=== PATIENT | female | born 1965 | race Caucasian/White ===

== ENCOUNTER 2017-11-15 12:43 | Inpatient (IN) | payer OTHER ==
[2017-11-15] VITALS (8 sets, daily range): BP systolic 92–150; BP diastolic 45–67; PULSE 99–122; RESP 16–22; TEMP 99.8–102.1; O2SAT 88–100
[~2017-11-15] VITALS: Ht 152.4 cm; Wt 103.7 kg
[2017-11-15] MEDS ORDERED: SODIUM CHLORID 0.9% 500 ML INJ 500 ML IV ONE (13:45)
[2017-11-15] MEDS ORDERED: SODIUM CHLOR 0.9% 1000 ML INJ 1,000 ML IV SCH (13:45)
[2017-11-15 14:16] LABS: BILIRUBIN, URINE NEG (NEG); BLOOD, URINE LARGE (NEG); GLUCOSE,URINE NEG (NEG); KETONE, URINE NEG (NEG); MUCUS URINE FEW /lpf (OCC); NITRITE,URINE NEG (NEG); URINE COLOR LIGHT-RED (YELLW/STRAW); URINE LEUKOCYTE ESTERASE LARGE (NEG); WHITE BLOOD CELL CLUMPS MANY
[2017-11-15 14:18] LABS: AUTOMATED NEUTROPHIL # 7.2 TH/MM3 (1.8-7.7); BASOPHIL % 0.1 % (0.0-2.0); EOSINOPHIL % 0.2 % (0.0-4.0); HEMATOCRIT 34.3 % (35.0-46.0); HEMOGLOBIN 11.5 GM/DL (11.6-15.3); LYMPH % 2.3 % (9.0-44.0); LYMPHOCYTE # 0.2 TH/MM3 (1.0-4.8); MEAN CELL VOLUME 85.8 FL (80.0-100.0); MEAN CORPUSCULAR HEMOGLOBIN 28.7 PG (27.0-34.0); MEAN CORPUSCULAR HGB CONC 33.5 % (32.0-36.0); MEAN PLATELET VOLUME 8.1 FL (7.0-11.0); MONO % 0.3 % (0.0-8.0); NEUT % 97.1 % (16.0-70.0); PLATELET COUNT 301 TH/MM3 (150-450); RED CELL DISTRIBUTION WIDTH 15.2 % (11.6-17.2); WHITE BLOOD COUNT 7.4 TH/MM3 (4.0-11.0)
[2017-11-15 14:20] LABS: PROTHROMBIN TIME - PATIENT 10.1 SEC (9.8-11.6)
[2017-11-15 14:25] LABS: AST (GOT) 23 U/L (15-37); BICARBONATE 24.5 MEQ/L (21.0-32.0); BLOOD UREA NITROGEN 10 MG/DL (7-18); CALCIUM 8.9 MG/DL (8.5-10.1); CHLORIDE 106 MEQ/L (98-107); CREATININE 0.84 MG/DL (0.50-1.00); GLOMERULAR FILTRATION RATE 71 ML/MIN (>89); GLUCOSE,RANDOM 98 MG/DL (74-106); SODIUM (NA) 141 MEQ/L (136-145)
[2017-11-15 14:26] LABS: ALT (GPT) 31 U/L (10-53)
[2017-11-15 14:28] LABS: ALKALINE PHOSPHATASE 118 U/L (45-117); TOTAL BILIRUBIN ADULT 0.6 MG/DL (0.2-1.0); TOTAL PROTEIN 6.7 GM/DL (6.4-8.2)
[2017-11-15] MEDS ORDERED: cefTRIAXone INJ 1,000 MG in SODIUM CHLORIDE 0.9% INJ 100 ML IV ONE (14:45)
--- NOTE | 2017-11-15 14:54 | PD ---
HPI Chief Complaint: Fever Time Seen by Provider: 13:08 Travel History International Travel<30 days: No Contact w/Intl Traveler<30days: No Traveled to known affect area: No History of Present Illness HPI 52-year-old female with a history of hyperlipidemia, anxiety disorder, who presents from clinic urology with report of fever and chills. Patient apparently was getting lithotripsy for kidney stone and had a stent placed in her left kidney, she was noted to have chills and a temperature of 102.1. When paramedics arrived, they found her temperature 102.8. The patient reports associated nausea and diaphoresis. There were no other complaints at time of examination. PFSH Past Medical History ?: Not Social History Tobacco Use: No Allergies-Medications (Allergen,Severity, Reaction): Coded Allergies: No Known Allergies (Unverified , 11/15/17) Reported Meds & Prescriptions Reported Meds & Active Scripts Active Reported Nabumetone 750 Mg Tab 750 Mg PO BID Gabapentin 600 Mg Tab 600 Mg PO HS Duloxetine DR (Duloxetine HCl) 60 Mg Capdr 60 Mg PO DAILY Wellbutrin Xl 24 HR (Bupropion HCl) 150 Mg Tab 150 Mg PO DAILY Biotin 5 Mg Cap 5 Mg PO Atorvastatin (Atorvastatin Calcium) 20 Mg Tab 20 Mg PO HS Omeprazole 40 Mg Cap 40 Mg DAILY Flomax (Tamsulosin HCl) 0.4 Mg Cap 0.4 Mg PO HS Review of Systems Except as stated in HPI: all other systems reviewed are Neg General / Constitutional: Positive: Fever HENT: No: Headaches, Neck Pain Cardiovascular: No: Chest Pain or Discomfort, Palpitations Respiratory: No: Cough, Shortness of Breath Gastrointestinal: Positive: Nausea, No: Vomiting, Abdominal Pain Genitourinary: Positive: Frequency, Dysuria Musculoskeletal: Positive: Pain, No: Weakness Neurologic: No: Weakness, Dizziness, Headache Physical Exam Narrative GENERAL: Well-developed well-nourished female in no acute respiratory distress. SKIN: Focused skin assessment warm/dry. HEAD: Atraumatic. Normocephalic. EYES: No scleral icterus. No injection or drainage. ENT: No nasal bleeding or discharge. Mucous membranes pink and moist. NECK: Trachea midline. Supple. CARDIOVASCULAR: Sinus tach rate of 120. No murmurs gallops rubs. RESPIRATORY: No accessory muscle use. Clear to auscultation. Breath sounds equal bilaterally. GASTROINTESTINAL: Abdomen soft, non-tender, nondistended. MUSCULOSKELETAL: No obvious deformities. No clubbing. No cyanosis. No edema. NEUROLOGICAL: Awake and alert. No obvious cranial nerve deficits. Motor grossly within normal limits. Normal speech. Data Data Last Documented VS Vital Signs Date Time Temp Pulse Resp B/P (MAP) Pulse Ox O2 Delivery O2 Flow Rate FiO2 11/15/17 14:02 116 19 121/58 (79) 96 Nasal Cannula 2.00 11/15/17 13:09 102.1 Orders Orders Ua Includes Microscopic (11/15/17 13:26) Urine Culture (11/15/17 13:26) Complete Blood Count With Diff (11/15/17 13:26) Blood Culture (11/15/17 13:26) Iv Access Insert/Monitor (11/15/17 13:26) Lactic Acid (11/15/17 13:26) Comprehensive Metabolic Panel (11/15/17 13:26) Act Partial Throm Time (Ptt) (11/15/17 13:26) Prothrombin Time / Inr (Pt) (11/15/17 13:26) Sodium Chlorid 0.9% 500 Ml Inj (Ns 500 M (11/15/17 13:45) Sodium Chlor 0.9% 1000 Ml Inj (Ns 1000 M (11/15/17 13:45) Ceftriaxone Inj (Rocephin Inj) (11/15/17 14:45) Admit To Inpatient (11/15/17 ) Code Status (11/15/17 14:58) Vital Signs (Adult) Q4H (11/15/17 14:58) Activity Oob With Assistance (11/15/17 14:58) Electrogalvanizing Machine Operator / Telemetry .CONTINUOUS (11/15/17 14:58) Diet Regular Basic (11/15/17 Dinner) Sodium Chloride 0.9% Flush (Ns Flush) (11/15/17 15:00) Sodium Chloride 0.9% Flush (Ns Flush) (11/15/17 21:00) Acetaminophen (Tylenol) (11/15/17 15:00) Basic Metabolic Panel (Bmp) (11/16/17 06:00) Complete Blood Count With Diff (11/16/17 06:00) Chest, Single Ap (11/15/17 14:58) Electrocardiogram (11/15/17 14:58) Scd Bilateral/Knee High JOSH.BID (11/15/17 14:58) Naloxone Inj (Narcan Inj) (11/15/17 15:00) Magnesium Hydroxide Liq (Milk Of Magnesi (11/15/17 15:00) Inpatient Certification (11/15/17 ) 1/2 Ns + Kcl 20 Meq Inj (1/2 Ns + Kcl 20 (11/15/17 15:00) Ceftriaxone Inj (Rocephin Inj) (11/16/17 15:00) Ondansetron Odt (Zofran Odt) (11/15/17 15:15) Morphine Inj (Morphine Inj) (11/15/17 15:30) Prochlorperazine Inj (Compazine Inj) (11/15/17 15:30) Admit Order (Ed Use Only) (11/15/17 15:20) Labs Laboratory Tests Test 11/15/17 13:10 11/15/17 13:20 Urine Color LIGHT-RED Urine Turbidity HAZY Urine pH 6.0 Urine Specific [place] 1.014 Urine Protein 30 mg/dL Urine Glucose (UA) NEG mg/dL Urine Ketones NEG mg/dL Urine Occult Blood LARGE Urine Nitrite NEG Urine Bilirubin NEG Urine Urobilinogen LESS THAN 2.0 MG/DL Urine Leukocyte Esterase LARGE Urine RBC /hpf Urine WBC /hpf Urine WBC Clumps MANY Urine Mucus FEW /lpf White Blood Count 7.4 TH/MM3 Red Blood Count 4.00 MIL/MM3 Hemoglobin 11.5 GM/DL Hematocrit 34.3 % Mean Corpuscular Volume 85.8 FL Mean Corpuscular Hemoglobin 28.7 PG Mean Corpuscular Hemoglobin Concent 33.5 % Red Cell Distribution Width 15.2 % Platelet Count 301 TH/MM3 Mean Platelet Volume 8.1 FL Neutrophils (%) (Auto) 97.1 % Lymphocytes (%) (Auto) 2.3 % Monocytes (%) (Auto) 0.3 % Eosinophils (%) (Auto) 0.2 % Basophils (%) (Auto) 0.1 % Neutrophils # (Auto) 7.2 TH/MM3 Lymphocytes # (Auto) 0.2 TH/MM3 Monocytes # (Auto) 0.0 TH/MM3 Eosinophils # (Auto) 0.0 TH/MM3 Basophils # (Auto) 0.0 TH/MM3 CBC Comment DIFF FINAL Differential Comment Prothrombin Time 10.1 SEC Prothromb Time International Ratio 1.0 RATIO Activated Partial Thromboplast Time 21.7 SEC Blood Urea Nitrogen 10 MG/DL Creatinine 0.84 MG/DL Random Glucose 98 MG/DL Total Protein 6.7 GM/DL Albumin 3.0 GM/DL Calcium Level 8.9 MG/DL Alkaline Phosphatase 118 U/L Aspartate Amino Transf (AST/SGOT) 23 U/L Alanine Aminotransferase (ALT/SGPT) 31 U/L Total Bilirubin 0.6 MG/DL Sodium Level 141 MEQ/L Potassium Level 3.8 MEQ/L Chloride Level 106 MEQ/L Carbon Dioxide Level 24.5 MEQ/L Anion Gap 11 MEQ/L Estimat Glomerular Filtration Rate 71 ML/MIN Lactic Acid Level 1.9 mmol/L MDM Medical Decision Making Medical Screen Exam Complete: Yes Emergency Medical Condition: Yes Differential Diagnosis Pyelonephritis versus pneumonia versus anesthesia induced fever Narrative Course 52-year-old female who was getting lithotripsy for left renal calculus, presents via the [place] for fever. Patient also had chills. Patient has infected urine. Patient also has tachycardia. She meets SIRS criteria. She has been started on Rocephin, 1 g IV 1 dose. There is a call out for admitting physician. She does meet sepsis criteria and will be a full admit. Sepsis Criteria SIRS Criteria (2 or more): Temp > 100.9 or < 96.8, Heart rate over 90 Sepsis Criteria (SIRS+source): Infect source susp/known Diagnosis Primary Impression: Sepsis Additional Impressions: Urinary tract infection Hyperlipidemia Anxiety disorder Status post lithotripsy with left ureteral stent Admitting Information Admitting Physician Requests: Admit Wan Mckay MD Nov 15, 2017 14:54
[2017-11-15] MEDS ORDERED: SODIUM CHLORIDE 0.9% FLUSH 10 ML FLUSH IV FLUSH PRN (15:00)
[2017-11-15] MEDS ORDERED: NALOXONE HCL 0.4 MG/ML AMP IV PUSH PRN (15:00)
[2017-11-15] MEDS ORDERED: MAGNESIUM HYDROXIDE SUSP 30 ML CUP PO PRN (15:00)
--- NOTE | 2017-11-15 15:12 | HHI.HP ---
HPI Service [facility] Hospitalists Primary Care Physician Unknown Admission Diagnosis UTI Chief Complaint: fever and chills after lithotripsy Travel History International Travel<30 Days: No Contact w/Intl Traveler <30 Da: No Traveled to Known Affected Are: No History of Present Illness This a 52-year-old female patient with past medical history which includes anxiety/depression, hyperlipidemia, acid reflux, peripheral neuropathy and hyperparathyroidism s/p partial parathyroidectomy 07/2017 who presents from urology clinic with report of fever and chills. Patient reports she was diagnosed witha UTI and, "two kidney stones," on the left 10/14/17 at [facility]. Patient reports that she was discharged on keflex and told to follow up with Dr. Li. This AM patient reports she was feeling generally well although she did have a temperature of 99.5 pre-procedure. Patient reportedly had lithotripsy and had a stent placed in her left kidney. When patient was waking from anesthesia she was noted to have chills and a temperature of 102.1. EMS was called and when paramedics arrived, they found her temperature 102.8. The patient reports associated nausea and diaphoresis. Patient reports chills have stopped and nausea is mild at this time. Patient feels as though, "a truck ran over her." Patient denies SOB or chest pain. Review of Systems Constitutional: COMPLAINS OF: Fever, Chills Past Family Social History Past Medical History anxiety/depression, hyperlipidemia, acid reflux, peripheral neuropathy, hyperparathyroidism Past Surgical History Appendectomy, bilateral breast reduction, section, cholecystectomy, tubal ligation, right ovary removed, epidural steroid injections, partial parathyroidectomy 07/29 Reported Medications Nabumetone 750 Mg Tab 750 Mg PO BID Gabapentin 600 Mg Tab 600 Mg PO HS Duloxetine DR (Duloxetine HCl) 60 Mg Capdr 60 Mg PO DAILY Wellbutrin Xl 24 HR (Bupropion HCl) 150 Mg Tab 150 Mg PO DAILY Biotin 5 Mg Cap 5 Mg PO Atorvastatin (Atorvastatin Calcium) 20 Mg Tab 20 Mg PO HS Omeprazole 40 Mg Cap 40 Mg DAILY Flomax (Tamsulosin HCl) 0.4 Mg Cap 0.4 Mg PO HS Allergies: Coded Allergies: No Known Allergies (Unverified , 11/15/17) Family History mother mechanical coronary valve father follicular lymphoma Social History - one growth child denies EtOH use Former tobacco, quit smoking 12 years ago. Prior to that smoked 1-2 cigarettes per week Denies illicit drug use Physical Exam Vital Signs Vital Signs Date Time Temp Pulse Resp B/P (MAP) Pulse Ox O2 Delivery O2 Flow Rate FiO2 11/15/17 14:02 116 19 121/58 (79) 96 Nasal Cannula 2.00 11/15/17 13:09 102.1 122 19 123/58 (79) 93 Physical Exam GENERAL: This is a well-nourished, well-developed patient, SKIN: No rashes, ecchymoses or lesions. Cool and dry. HEAD: Atraumatic. Normocephalic. No temporal or scalp tenderness. EYES: Extraocular motions intact. No scleral icterus. No injection or drainage. CARDIOVASCULAR: tachycardic RESPIRATORY: Clear to auscultation. Breath sounds equal bilaterally. GASTROINTESTINAL: Abdomen soft, non-tender, nondistended. MUSCULOSKELETAL: Extremities without clubbing, cyanosis, or edema. No joint tenderness, effusion, or edema noted. No calf tenderness. Negative Homans sign bilaterally. NEUROLOGICAL: Awake and alert. No focal deficits noted. Motor and sensory grossly within normal limits. Five out of 5 muscle strength in all muscle groups. Normal speech. Laboratory Laboratory Tests Test 11/15/17 13:10 11/15/17 13:20 Urine Color LIGHT-RED Urine Turbidity HAZY Urine pH 6.0 Urine Specific [place] 1.014 Urine Protein 30 Urine Glucose (UA) NEG Urine Ketones NEG Urine Occult Blood LARGE Urine Nitrite NEG Urine Bilirubin NEG Urine Urobilinogen LESS THAN 2.0 Urine Leukocyte Esterase LARGE Urine RBC Urine WBC Urine WBC Clumps MANY Urine Mucus FEW White Blood Count 7.4 Red Blood Count 4.00 Hemoglobin 11.5 Hematocrit 34.3 Mean Corpuscular Volume 85.8 Mean Corpuscular Hemoglobin 28.7 Mean Corpuscular Hemoglobin Concent 33.5 Red Cell Distribution Width 15.2 Platelet Count 301 Mean Platelet Volume 8.1 Neutrophils (%) (Auto) 97.1 Lymphocytes (%) (Auto) 2.3 Monocytes (%) (Auto) 0.3 Eosinophils (%) (Auto) 0.2 Basophils (%) (Auto) 0.1 Neutrophils # (Auto) 7.2 Lymphocytes # (Auto) 0.2 Monocytes # (Auto) 0.0 Eosinophils # (Auto) 0.0 Basophils # (Auto) 0.0 CBC Comment DIFF FINAL Differential Comment Prothrombin Time 10.1 Prothromb Time International Ratio 1.0 Activated Partial Thromboplast Time 21.7 Blood Urea Nitrogen 10 Creatinine 0.84 Random Glucose 98 Total Protein 6.7 Albumin 3.0 Calcium Level 8.9 Alkaline Phosphatase 118 Aspartate Amino Transf (AST/SGOT) 23 Alanine Aminotransferase (ALT/SGPT) 31 Total Bilirubin 0.6 Sodium Level 141 Potassium Level 3.8 Chloride Level 106 Carbon Dioxide Level 24.5 Anion Gap 11 Estimat Glomerular Filtration Rate 71 Lactic Acid Level 1.9 Date/Time Source Procedure Growth Status 11/15/17 13:20 Blood Peripheral Aerobic Blood Culture Pending Received 11/15/17 13:20 Blood Peripheral Anaerobic Blood Culture Pending Received 11/15/17 13:10 Urine Catheterized Urine Urine Culture Pending Received Result Diagram: 11/15/17 1320 11/15/17 1320 Capyanick VTE Risk Assessment Yee VTE Risk Assessment: No/Low Risk (score <= 1) Caprini Risk Assessment Model Point Value = 1 Point Value = 2 Point Value = 3 Point Value = 5 Age 41-60 Minor surgery BMI > 25 kg/m2 Swollen legs Varicose veins or History of unexplained or recurrent spontaneous Oral contraceptives or hormone replacement Sepsis (< 1 month) Serious lung disease, including pneumonia (< 1 month) Abnormal pulmonary function Acute myocardial infarction Congestive heart failure (< 1 month) History of inflammatory bowel disease Medical patient at bed rest Age 61-74 Arthroscopic surgery Major open surgery (> 45 min) Laparoscopic surgery (> 45 min) Malignancy Confined to bed (> 72 hours) Immobilizing plaster cast Central venous access Age >= 75 History of VTE Family history of VTE Factor V Leiden Prothrombin [id number] Lupus anticoagulant Anticardiolipin antibodies Elevated serum homocysteine Heparin-induced thrombocytopenia Other congenital or acquired thrombophilia Stroke (< 1 month) Elective arthroplasty Hip, pelvis, or leg fracture Acute spinal cord injury (< 1 month) Prophylaxis Regimen Total Risk Factor Score Risk Level Prophylaxis Regimen 0-1 Low Early ambulation 2 Moderate Order ONE of the following: *Sequential Compression Device (SCD) *Heparin 5000 units SQ BID 3-4 Higher Order ONE of the following medications: *Heparin 5000 units SQ TID *Enoxaparin/Lovenox 40 mg SQ daily (WT < 150 kg, CrCl > 30 mL/min) *Enoxaparin/Lovenox 30 mg SQ daily (WT < 150 kg, CrCl > 10-29 mL/min) *Enoxaparin/Lovenox 30 mg SQ BID (WT < 150 kg, CrCl > 30 mL/min) AND/OR *Sequential Compression Device (SCD) 5 or more Highest Order ONE of the following medications: *Heparin 5000 units SQ TID (Preferred with Epidurals) *Enoxaparin/Lovenox 40 mg SQ daily (WT < 150 kg, CrCl > 30 mL/min) *Enoxaparin/Lovenox 30 mg SQ daily (WT < 150 kg, CrCl > 10-29 mL/min) *Enoxaparin/Lovenox 30 mg SQ BID (WT < 150 kg, CrCl > 30 mL/min) AND *Sequential Compression Device (SCD) Assessment and Plan Problem List: (1) Urinary tract infection ICD Codes: N39.0 - Urinary tract infection, site not specified Status: Acute Plan: This a 52-year-old female patient with past medical history which includes anxiety/depression, hyperlipidemia, acid reflux, peripheral neuropathy and hyperparathyroidism s/p partial parathyroidectomy 07/2017 who presents from urology clinic with report of fever and chills. Patient reports she was diagnosed witha UTI and, "two kidney stones," on the left 10/14/17 at [facility]. Patient reports that she was discharged on keflex and told to follow up with Dr. Li. This AM patient reports she was feeling generally well although she did have a temperature of 99.5 pre-procedure. Patient reportedly had lithotripsy and had a stent placed in her left kidney. When patient was waking from anesthesia she was noted to have chills and a temperature of 102.1. EMS was called and when paramedics arrived, they found her temperature 102.8. The patient reports associated nausea and diaphoresis. Patient reports chills have stopped and nausea is mild at this time. Patient feels as though, "a truck ran over her." Patient denies SOB or chest pain. Records from outpatient neurology requested Urinalysis reviewed and reveals large amount of occult blood negative nitrates large amount of leukocyte esterase and white blood cells with clumps Urine culture pending Ceftriaxone started in emergency department, will continue (2) Anxiety disorder ICD Codes: F41.9 - Anxiety disorder, unspecified Status: Chronic Plan: Continue patient's home Bupropion 150 mg daily and Duloxetine 60 mg daily (3) Hyperlipidemia ICD Codes: E78.5 - Hyperlipidemia, unspecified Status: Chronic Plan: Continue home Atorvastatin Assessment and Plan Patient examined. Assessment and plan formulated with Milla Maloney PA-C. I agree with the above. Physician Certification 2 Midnight Certification Type: Admission for Inpatient Services Order for Inpatient Services The services are ordered in accordance with Medicare regulations or non- Medicare payer requirements, as applicable. In the case of services not specified as inpatient-only, they are appropriately provided as inpatient services in accordance with the 2-midnight benchmark. Estimated LOS (days): 3 days is the estimated time the patient will need to remain in the hospital, assuming treatment plan goals are met and no additional complications. Post-Hospital Plan: Home Milla Maloney Nov 15, 2017 15:12 Rishi Echeverria DO Nov 18, 2017 23:00
[2017-11-15] MEDS ORDERED: ONDANSETRON ODT 4 MG TAB PO PRN (15:15)
[2017-11-15] MEDS: ACETAMINOPHEN 325 MG TAB PO PRN ×2 (15:19→21:14)
[2017-11-15] MEDS ORDERED: ATOR20TA15 PO (15:26)
[2017-11-15] MEDS ORDERED: TAMS5CAP PO (15:26)
[2017-11-15] MEDS ORDERED: GABA600T PO (15:26)
[2017-11-15] MEDS ORDERED: BIOTCAP PO (15:26)
[2017-11-15] MEDS ORDERED: OMEP40CA2 (15:26)
[2017-11-15] MEDS ORDERED: BUPR150XL PO (15:26)
[2017-11-15] MEDS ORDERED: DULO1CAP3 PO (15:26)
[2017-11-15] MEDS ORDERED: NABU1TAB33 PO (15:26)
[2017-11-15] MEDS ORDERED: MORPHINE SULFATE 4 MG/ML INJ IV PUSH ONE (15:30)
[2017-11-15] MEDS ORDERED: PROCHLORPERAZINE INJ 10 MG/2 ML VIAL IV PUSH ONE (15:30)
--- NOTE | 2017-11-15 15:55 | RADRPT ---
EXAM DATE: 11/15/2017 3:48 PM EDT AGE/SEX: 52 years / Female INDICATIONS: Cough CLINICAL DATA: This is the patient's initial encounter. Patient reports that signs and symptoms have been present for 1 day and indicates a pain score of 0/10. MEDICAL/SURGICAL HISTORY: None. None. COMPARISON: No prior exams available for comparison. FINDINGS: Portable AP view of the chest demonstrates a normal-sized cardiac silhouette. The lungs demonstrate n o definite effusion, consolidation, or pneumothorax. A linear opacity is present in the left lower gladis ng zone and right midlung zone. The bones and soft tissues demonstrate no acute finding. EKG lines ov erlie the patient. CONCLUSION: No acute cardiopulmonary abnormality is identified. Linear opacities bilaterally represent either sub segmental atelectasis or scar. Electronically signed by: Julio Pérez MD 11/15/2017 3:54 PM EDT
[2017-11-15] MEDS: 1/2 NS + KCL 20 MEQ INJ 1,000 ML IV SCH (16:57)
[2017-11-15] MEDS ORDERED: PILL SPLITTER OTHER PRN (17:00)
--- NOTE | 2017-11-15 17:15 | PD.CONS ---
HPI Service Urology Consult Requested By Primary Care Physician Unknown Diagnosis: (1) Urinary tract infection ICD Code: N39.0 - Urinary tract infection, site not specified (2) Anxiety disorder ICD Code: F41.9 - Anxiety disorder, unspecified (3) Hyperlipidemia ICD Code: E78.5 - Hyperlipidemia, unspecified History of Present Illness 52yo female s/p lithotripsy with Dr. Alvarado now admitted with Urosepsis. Patient had lithotripsy with stent exchange this morning. In PCAU she developed fevers over 102 with tachycardia and hypotension. She was taken to the [place] ED and started on IV abx and IVF. Patient currently asleep and resting, family at bedside. Review of Systems ROS Limitations: Clinical Condition Constitutional: COMPLAINS OF: Fatigue, Fever Eyes: DENIES: Blurred vision, Diplopia Ears, nose, mouth, throat: DENIES: Tinnitus, Hearing loss Respiratory: DENIES: Cough Cardiovascular: DENIES: Chest pain Gastrointestinal: COMPLAINS OF: Abdominal pain Genitourinary: COMPLAINS OF: Hematuria Psychiatric: DENIES: Anxiety Except as stated in HPI: all other systems reviewed are Neg Past Family Social History Past Medical History anxiety/depression, hyperlipidemia, acid reflux, peripheral neuropathy, hyperparathyroidism Past Surgical History Appendectomy, bilateral breast reduction, section, cholecystectomy, tubal ligation, right ovary removed, epidural steroid injections, partial parathyroidectomy 07/29 Reported Medications Reported Meds & Active Scripts Active Reported Nabumetone 750 Mg Tab 750 Mg PO BID Gabapentin 600 Mg Tab 600 Mg PO HS Duloxetine DR (Duloxetine HCl) 60 Mg Capdr 60 Mg PO DAILY Wellbutrin Xl 24 HR (Bupropion HCl) 150 Mg Tab 150 Mg PO DAILY Biotin 5 Mg Cap 5 Mg PO Atorvastatin (Atorvastatin Calcium) 20 Mg Tab 20 Mg PO HS Omeprazole 40 Mg Cap 40 Mg DAILY Flomax (Tamsulosin HCl) 0.4 Mg Cap 0.4 Mg PO HS Allergies: Coded Allergies: No Known Allergies (Unverified , 11/15/17) Active Ordered Medications Current Medications Medications (Trade) Dose Ordered Sig/Ioana Route Start Time Stop Time Status Last Admin (NS Flush) 2 ml UNSCH PRN IV FLUSH 11/15/17 15:00 (NS Flush) 2 ml BID IV FLUSH 11/15/17 21:00 (Tylenol) 650 mg Q4H PRN PO 11/15/17 15:00 11/15/17 15:19 (Zofran Odt) 4 mg Q6H PRN PO 11/15/17 15:15 (Narcan Inj) 0.4 mg UNSCH PRN IV PUSH 11/15/17 15:00 (Milk Of [place] Liq) 30 ml Q12H PRN PO 11/15/17 15:00 Potassium Chloride/Sodium Chloride 1,000 ml @ 100 mls/hr Q10H IV 11/15/17 15:00 11/16/17 10:59 11/15/17 16:57 Ceftriaxone Sodium 1000 mg/ Sodium Chloride 100 ml @ 200 mls/hr Q24H IV 11/16/17 15:00 (Lipitor) 20 mg HS PO 11/15/17 21:00 (Cymbalta Dr) 60 mg DAILY PO 11/16/17 09:00 (Neurontin) 600 mg HS PO 11/15/17 21:00 (Flomax) 0.4 mg HS PO 11/15/17 21:00 (Wellbutrin Sr) 150 mg DAILY PO 11/16/17 09:00 (Protonix) 40 mg DAILY PO 11/16/17 09:00 (Relafen) 750 mg BID PO 11/15/17 21:00 (Pill Splitter) 1 ea UNSCH PRN OTHER 11/15/17 17:00 Family History mother mechanical coronary valve father follicular lymphoma Social History - one growth child denies EtOH use Former tobacco, quit smoking 12 years ago. Prior to that smoked 1-2 cigarettes per week Denies illicit drug use Physical Exam Vital Signs Date Time Temp Pulse Resp B/P (MAP) Pulse Ox O2 Delivery O2 Flow Rate FiO2 11/15/17 16:26 93 Nasal Cannula 2.00 11/15/17 16:25 88 Room Air 11/15/17 14:02 116 19 121/58 (79) 96 Nasal Cannula 2.00 11/15/17 13:09 102.1 122 19 123/58 (79) 93 Physical Exam GENERAL: This is a well-nourished, well-developed patient. SKIN: No rashes, ecchymoses or lesions. HEAD: Atraumatic. Normocephalic. EYES: Extraocular motions intact. No scleral icterus. No injection or drainage. ENT: Nose without bleeding, purulent drainage. Airway patent. NECK: Trachea midline. No JVD or lymphadenopathy. CARDIOVASCULAR: Tachycardic, low 100's RESPIRATORY: Nonlabored GASTROINTESTINAL: Abdomen nondistended. MUSCULOSKELETAL: Extremities without clubbing, cyanosis, or edema.. NEUROLOGICAL: Awake and alert. Motor and sensory grossly within normal limits. Normal speech. Lab results reviewed: Yes Laboratory Tests Test 11/15/17 13:10 11/15/17 13:20 Urine Color LIGHT-RED Urine Turbidity HAZY Urine pH 6.0 Urine Specific [place] 1.014 Urine Protein 30 Urine Glucose (UA) NEG Urine Ketones NEG Urine Occult Blood LARGE Urine Nitrite NEG Urine Bilirubin NEG Urine Urobilinogen LESS THAN 2.0 Urine Leukocyte Esterase LARGE Urine RBC Urine WBC Urine WBC Clumps MANY Urine Mucus FEW White Blood Count 7.4 Red Blood Count 4.00 Hemoglobin 11.5 Hematocrit 34.3 Mean Corpuscular Volume 85.8 Mean Corpuscular Hemoglobin 28.7 Mean Corpuscular Hemoglobin Concent 33.5 Red Cell Distribution Width 15.2 Platelet Count 301 Mean Platelet Volume 8.1 Neutrophils (%) (Auto) 97.1 Lymphocytes (%) (Auto) 2.3 Monocytes (%) (Auto) 0.3 Eosinophils (%) (Auto) 0.2 Basophils (%) (Auto) 0.1 Neutrophils # (Auto) 7.2 Lymphocytes # (Auto) 0.2 Monocytes # (Auto) 0.0 Eosinophils # (Auto) 0.0 Basophils # (Auto) 0.0 CBC Comment DIFF FINAL Differential Comment Prothrombin Time 10.1 Prothromb Time International Ratio 1.0 Activated Partial Thromboplast Time 21.7 Blood Urea Nitrogen 10 Creatinine 0.84 Random Glucose 98 Total Protein 6.7 Albumin 3.0 Calcium Level 8.9 Alkaline Phosphatase 118 Aspartate Amino Transf (AST/SGOT) 23 Alanine Aminotransferase (ALT/SGPT) 31 Total Bilirubin 0.6 Sodium Level 141 Potassium Level 3.8 Chloride Level 106 Carbon Dioxide Level 24.5 Anion Gap 11 Estimat Glomerular Filtration Rate 71 Lactic Acid Level 1.9 Date/Time Source Procedure Growth Status 11/15/17 13:20 Blood Peripheral Aerobic Blood Culture Pending Received 11/15/17 13:20 Blood Peripheral Anaerobic Blood Culture Pending Received 11/15/17 13:10 Urine Catheterized Urine Urine Culture Pending Received Result Diagram: 11/15/17 1320 11/15/17 1320 Personally reviewed images: Yes Imaging Last Impressions Chest X-Ray 11/15/17 1458 Signed Impressions: CONCLUSION: No acute cardiopulmonary abnormality is identified. Linear opacities bilaterall y represent either subsegmental atelectasis or scar. Assessment and Plan Problem List: (1) Urinary tract infection ICD Code: N39.0 - Urinary tract infection, site not specified Status: Acute (2) Sepsis ICD Code: A41.9 - Sepsis, unspecified organism Status: Acute Assessment and Plan -Continue broad spectrum abx and IVF -Cultures pending -Stent in place, draining kidney. No surgical intervention indicated at this time -Will follow Golden Mazariegos MD Nov 15, 2017 17:15
[2017-11-15] MEDS: NABUMETONE 500 MG TAB PO SCH (21:00)
[2017-11-15] MEDS ORDERED: NABUMETONE 750 MG PO SCH (21:00)
[2017-11-15] MEDS: SODIUM CHLORIDE 0.9% FLUSH 10 ML FLUSH IV FLUSH SCH (21:00)
[2017-11-15] MEDS: GABAPENTIN 300 MG CAP PO SCH (21:52)
[2017-11-15] MEDS: ATORVASTATIN 20 MG TAB PO SCH (21:52)
[2017-11-15] MEDS: TAMSULOSIN HCL 0.4 MG CAP PO SCH (21:52)
[2017-11-16] VITALS (9 sets, daily range): BP systolic 104–153; BP diastolic 55–78; PULSE 89–104; RESP 16–21; TEMP 98.3–100.7; O2SAT 93–100
[2017-11-16] MEDS: ACETAMINOPHEN 325 MG TAB PO PRN ×4 (01:10→18:14)
[2017-11-16] MEDS: 1/2 NS + KCL 20 MEQ INJ 1,000 ML IV SCH ×3 (02:08→23:45)
[2017-11-16 06:17] LABS: AUTOMATED NEUTROPHIL # 9.7 TH/MM3 (1.8-7.7); BASOPHIL % 0.1 % (0.0-2.0); HEMATOCRIT 33.4 % (35.0-46.0); LYMPH % 1.7 % (9.0-44.0); LYMPHOCYTE # 0.2 TH/MM3 (1.0-4.8); MEAN CELL VOLUME 86.9 FL (80.0-100.0); MEAN CORPUSCULAR HEMOGLOBIN 28.7 PG (27.0-34.0); MONO % 2.2 % (0.0-8.0); MONOCYTE # 0.2 TH/MM3 (0-0.9); PLATELET COUNT 278 TH/MM3 (150-450); RED BLOOD COUNT 3.85 MIL/MM3 (4.00-5.30); RED CELL DISTRIBUTION WIDTH 15.7 % (11.6-17.2); WHITE BLOOD COUNT 10.1 TH/MM3 (4.0-11.0)
[2017-11-16 06:51] LABS: BICARBONATE 26.3 MEQ/L (21.0-32.0); CALCIUM 8.1 MG/DL (8.5-10.1); CREATININE 0.77 MG/DL (0.50-1.00)
[2017-11-16] MEDS: buPROPion HCL 150 MG SUSTAINED RELEASE TAB PO SCH (08:35)
[2017-11-16] MEDS: PANTOPRAZOLE SOD 40 MG DELAYED RELEASE TAB PO SCH (08:35)
[2017-11-16] MEDS: SODIUM CHLORIDE 0.9% FLUSH 10 ML FLUSH IV FLUSH SCH ×2 (08:38→20:55)
[2017-11-16] MEDS: NABUMETONE 500 MG TAB PO SCH ×2 (09:00→20:47)
[2017-11-16] MEDS ORDERED: buPROPion HCL 150 MG EXTENDED RELEASE TAB PO SCH (09:00)
[2017-11-16] MEDS ORDERED: NON-FORMULARY DRUG (Omeprazole 40 MG) SCH (09:00)
[2017-11-16] MEDS: DULoxetine HCl DR 60 MG CAP PO SCH (09:00)
[2017-11-16] MEDS: ACETAMIN 325 MG/BUTALBITAL 50 MG/CAFFEINE 40 MG TAB PO PRN ×2 (11:42→20:47)
--- NOTE | 2017-11-16 12:19 | HHI.PR ---
Subjective Remarks Patient reports Migraine headache through the night, consistent with her prior migraines. Slightly better after Fioricet Afebrile since 0400 Objective Vitals Vital Signs Date Time Temp Pulse Resp B/P (MAP) Pulse Ox O2 Delivery O2 Flow Rate FiO2 11/16/17 08:08 98.9 96 17 153/73 (99) 94 11/16/17 04:00 Nasal Cannula 2.00 11/16/17 04:00 103 11/16/17 04:00 100.7 104 18 122/57 (78) 95 11/16/17 00:00 102 16 111/78 (89) 100 Nasal Cannula 2.00 11/16/17 00:00 103 11/16/17 00:00 100.2 101 18 123/61 (81) 94 11/16/17 00:00 Nasal Cannula 2.00 11/15/17 23:00 99 16 113/65 (81) 100 Nasal Cannula 2.00 11/15/17 22:00 Nasal Cannula 2.00 11/15/17 21:17 99.8 115 18 150/67 (94) 95 11/15/17 20:21 102 16 111/52 (71) 100 Nasal Cannula 2.00 11/15/17 19:06 102 22 92/45 (61) 95 Nasal Cannula 2.00 11/15/17 16:26 93 Nasal Cannula 2.00 11/15/17 16:25 88 Room Air 11/15/17 14:02 116 19 121/58 (79) 96 Nasal Cannula 2.00 11/15/17 13:09 102.1 122 19 123/58 (79) 93 Result Diagram: 11/16/17 0540 11/16/17 0540 Other Results Laboratory Tests Test 11/15/17 13:10 11/15/17 13:20 11/16/17 05:40 Urine Color LIGHT-RED Urine Turbidity HAZY Urine pH 6.0 Urine Specific [place] 1.014 Urine Protein 30 mg/dL Urine Glucose (UA) NEG mg/dL Urine Ketones NEG mg/dL Urine Occult Blood LARGE Urine Nitrite NEG Urine Bilirubin NEG Urine Urobilinogen LESS THAN 2.0 MG/DL Urine Leukocyte Esterase LARGE Urine RBC /hpf Urine WBC /hpf Urine WBC Clumps MANY Urine Mucus FEW /lpf White Blood Count 7.4 TH/MM3 10.1 TH/MM3 Red Blood Count 4.00 MIL/MM3 3.85 MIL/MM3 Hemoglobin 11.5 GM/DL 11.0 GM/DL Hematocrit 34.3 % 33.4 % Mean Corpuscular Volume 85.8 FL 86.9 FL Mean Corpuscular Hemoglobin 28.7 PG 28.7 PG Mean Corpuscular Hemoglobin Concent 33.5 % 33.0 % Red Cell Distribution Width 15.2 % 15.7 % Platelet Count 301 TH/MM3 278 TH/MM3 Mean Platelet Volume 8.1 FL 8.0 FL Neutrophils (%) (Auto) 97.1 % 96.0 % Lymphocytes (%) (Auto) 2.3 % 1.7 % Monocytes (%) (Auto) 0.3 % 2.2 % Eosinophils (%) (Auto) 0.2 % 0.0 % Basophils (%) (Auto) 0.1 % 0.1 % Neutrophils # (Auto) 7.2 TH/MM3 9.7 TH/MM3 Lymphocytes # (Auto) 0.2 TH/MM3 0.2 TH/MM3 Monocytes # (Auto) 0.0 TH/MM3 0.2 TH/MM3 Eosinophils # (Auto) 0.0 TH/MM3 0.0 TH/MM3 Basophils # (Auto) 0.0 TH/MM3 0.0 TH/MM3 CBC Comment DIFF FINAL DIFF FINAL Differential Comment Prothrombin Time 10.1 SEC Prothromb Time International Ratio 1.0 RATIO Activated Partial Thromboplast Time 21.7 SEC Blood Urea Nitrogen 10 MG/DL 8 MG/DL Creatinine 0.84 MG/DL 0.77 MG/DL Random Glucose 98 MG/DL 115 MG/DL Total Protein 6.7 GM/DL Albumin 3.0 GM/DL Calcium Level 8.9 MG/DL 8.1 MG/DL Alkaline Phosphatase 118 U/L Aspartate Amino Transf (AST/SGOT) 23 U/L Alanine Aminotransferase (ALT/SGPT) 31 U/L Total Bilirubin 0.6 MG/DL Sodium Level 141 MEQ/L 141 MEQ/L Potassium Level 3.8 MEQ/L 3.7 MEQ/L Chloride Level 106 MEQ/L 107 MEQ/L Carbon Dioxide Level 24.5 MEQ/L 26.3 MEQ/L Anion Gap 11 MEQ/L 8 MEQ/L Estimat Glomerular Filtration Rate 71 ML/MIN 79 ML/MIN Lactic Acid Level 1.9 mmol/L Imaging Last Impressions Chest X-Ray 11/15/17 5090 Signed Impressions: CONCLUSION: No acute cardiopulmonary abnormality is identified. Linear opacities bilaterall y represent either subsegmental atelectasis or scar. Objective Remarks GENERAL: This is a morbidly obese 52 year old female, well-developed patient, in no apparent distress. CARDIOVASCULAR: Regular rate and rhythm RESPIRATORY: Clear to auscultation. Breath sounds equal bilaterally. GASTROINTESTINAL: Abdomen soft, non-tender, nondistended. Normal active bowel sounds MUSCULOSKELETAL: Extremities without clubbing, cyanosis, or edema. NEURO: Alert & Oriented x4 to person, place, time, situation. Moves all ext x4 A/P Problem List: (1) Urinary tract infection ICD Codes: N39.0 - Urinary tract infection, site not specified Status: Acute Plan: This a 52-year-old female patient with past medical history which includes anxiety/depression, hyperlipidemia, acid reflux, peripheral neuropathy and hyperparathyroidism s/p partial parathyroidectomy 07/2017 who presents from urology clinic with report of fever and chills. Patient reports she was diagnosed witha UTI and, "two kidney stones," on the left 10/14/17 at [facility]. Patient reports that she was discharged on keflex and told to follow up with Dr. Li. This AM patient reports she was feeling generally well although she did have a temperature of 99.5 pre-procedure. Patient reportedly had lithotripsy and had a stent placed in her left kidney. When patient was waking from anesthesia she was noted to have chills and a temperature of 102.1. EMS was called and when paramedics arrived, they found her temperature 102.8. The patient reports associated nausea and diaphoresis. Patient reports chills have stopped and nausea is mild at this time. Patient feels as though, "a truck ran over her." Patient denies SOB or chest pain. Records from outpatient neurology requested Urinalysis reviewed and reveals large amount of occult blood negative nitrates large amount of leukocyte esterase and white blood cells with clumps Urine culture pending Ceftriaxone started in emergency department, will continue WBC on admission 7.4 -> 10.1 (11/16) A febrile since (11/16/17) 0400 recheck CBC in AM (2) Anxiety disorder ICD Codes: F41.9 - Anxiety disorder, unspecified Status: Chronic Plan: Continue patient's home Bupropion 150 mg daily and Duloxetine 60 mg daily (3) Hyperlipidemia ICD Codes: E78.5 - Hyperlipidemia, unspecified Status: Chronic Plan: Continue home Atorvastatin (4) Migraine ICD Codes: G43.909 - Migraine, unspecified, not intractable, without status migrainosus Plan: Patient with migraines consistent with her prior migraines. Slightly better after Fioricet. add [place] Assessment and Plan Patient examined. Assessment and plan formulated with Milla Maloney PA-C. I agree with the above. Milla Maloney Nov 16, 2017 12:19 Rishi Echeverria DO Nov 18, 2017 23:00
[2017-11-16] MEDS ORDERED: ACETAMINOPHEN/HYDROcodone 325 MG/5 MG TAB PO ONE (13:45)
[2017-11-16] MEDS ORDERED: cefTRIAXone INJ 2,000 MG in SODIUM CHLORIDE 0.9% INJ 100 ML IV SCH (15:00)
[2017-11-16] MEDS: cefTRIAXone INJ 1,000 MG in SODIUM CHLORIDE 0.9% INJ 100 ML IV SCH (15:06)
--- NOTE | 2017-11-16 15:18 | EKG ---
Date Performed: 11/15/2017 Time Performed: 19:31:06 PTAGE: 52 years EKG: SINUS TACHYCARDIA NONSPECIFIC ST & T-WAVE ABNORMALITY ABNORMAL RHYTHM ECG INTERPRETATION BA SED ON A DEFAULT AGE OF 40 YEARS NO PREVIOUS TRACING DOCTOR: Christopher Coello Interpretating Date/Time 11/16/2017 15:17:41
[2017-11-16] MEDS: TAMSULOSIN HCL 0.4 MG CAP PO SCH (20:47)
[2017-11-16] MEDS: ATORVASTATIN 20 MG TAB PO SCH (20:47)
[2017-11-16] MEDS: GABAPENTIN 300 MG CAP PO SCH (20:47)
[2017-11-16] MEDS: ACETAMINOPHEN/HYDROcodone 325 MG/5 MG TAB PO PRN (20:55)
[2017-11-17] VITALS: BP 112/71; PULSE 78; PULSE 81; RESP 18; TEMP 98; O2SAT 94
[2017-11-17] MEDS: 1/2 NS + KCL 20 MEQ INJ 1,000 ML IV SCH (03:31)
[2017-11-17] MEDS: ACETAMINOPHEN/HYDROcodone 325 MG/5 MG TAB PO PRN ×3 (03:33→12:58)
[2017-11-17 04:00] VITALS: BP 107/68; PULSE 82; PULSE 85; RESP 16; TEMP 98.1; O2SAT 95
[2017-11-17] MEDS: ACETAMIN 325 MG/BUTALBITAL 50 MG/CAFFEINE 40 MG TAB PO PRN ×2 (06:30→14:29)
[2017-11-17 08:00] VITALS: PULSE 95
[2017-11-17 08:02] LABS: AUTOMATED NEUTROPHIL # 3.9 TH/MM3 (1.8-7.7); BASOPHIL % 0.4 % (0.0-2.0); EOSINOPHIL # 0.2 TH/MM3 (0-0.4); EOSINOPHIL % 3.7 % (0.0-4.0); HEMATOCRIT 31.9 % (35.0-46.0); HEMOGLOBIN 10.4 GM/DL (11.6-15.3); LYMPH % 10.4 % (9.0-44.0); LYMPHOCYTE # 0.5 TH/MM3 (1.0-4.8); MEAN CELL VOLUME 86.7 FL (80.0-100.0); MEAN CORPUSCULAR HEMOGLOBIN 28.3 PG (27.0-34.0); MEAN CORPUSCULAR HGB CONC 32.6 % (32.0-36.0); MEAN PLATELET VOLUME 8.1 FL (7.0-11.0); MONO % 5.5 % (0.0-8.0); MONOCYTE # 0.3 TH/MM3 (0-0.9); PLATELET COUNT 232 TH/MM3 (150-450); RED BLOOD COUNT 3.68 MIL/MM3 (4.00-5.30); RED CELL DISTRIBUTION WIDTH 15.4 % (11.6-17.2); WHITE BLOOD COUNT 4.9 TH/MM3 (4.0-11.0)
[2017-11-17 08:08] VITALS: BP 119/58; PULSE 87; RESP 18; TEMP 98.1; O2SAT 92
[2017-11-17] MEDS: NABUMETONE 500 MG TAB PO SCH (08:16)
[2017-11-17] MEDS: DULoxetine HCl DR 60 MG CAP PO SCH (08:17)
[2017-11-17] MEDS: PANTOPRAZOLE SOD 40 MG DELAYED RELEASE TAB PO SCH (08:17)
[2017-11-17] MEDS: buPROPion HCL 150 MG SUSTAINED RELEASE TAB PO SCH (08:17)
[2017-11-17] MEDS: SODIUM CHLORIDE 0.9% FLUSH 10 ML FLUSH IV FLUSH SCH (08:21)
[2017-11-17 08:24] LABS: BICARBONATE 24.1 MEQ/L (21.0-32.0); CREATININE 0.63 MG/DL (0.50-1.00)
[2017-11-17] MEDS: ACETAMINOPHEN 325 MG TAB PO PRN (11:24)
[2017-11-17 12:08] VITALS: BP 120/59; PULSE 90; RESP 18; TEMP 98.3; O2SAT 93
[2017-11-17] MEDS ORDERED: LEVO500T8 PO (14:53)
--- NOTE | 2017-11-17 15:01 | HHI.DCPOC ---
Discharge Care Plan Diagnosis: (1) Urinary tract infection (2) Migraine Goals to Promote Your Health * To prevent worsening of your condition and complications * To maintain your health at the optimal level Directions to Meet Your Goals Take your medications as prescribed Follow your dietary instruction Follow activity as directed Keep your appointments as scheduled Take your immunizations and boosters as scheduled If your symptoms worsen call your PCP, if no PCP go to Urgent Care Center or Emergency Room Smoking is Dangerous to Your Health. Avoid second hand smoke Call the 24-hour hour crisis hotline for domestic abuse at Milla Maloney Nov 17, 2017 15:00 Rishi Echeverria DO Nov 18, 2017 23:01
--- NOTE | 2017-11-17 15:05 | HHI.DS ---
Discharge Summary Admission Date Nov 15, 2017 at 15:22 Discharge Date: Nov 17, 2017 Admitting Diagnosis UTI (1) Urinary tract infection Diagnosis: Principal ICD Codes: N39.0 - Urinary tract infection, site not specified Status: Acute (2) Anxiety disorder Diagnosis: Principal ICD Codes: F41.9 - Anxiety disorder, unspecified Status: Chronic (3) Hyperlipidemia Diagnosis: Secondary ICD Codes: E78.5 - Hyperlipidemia, unspecified Status: Chronic (4) Migraine Diagnosis: Secondary ICD Codes: G43.909 - Migraine, unspecified, not intractable, without status migrainosus Consultants Dr. Mazariegos, Urology Procedures none Brief History This a 52-year-old female patient with past medical history which includes anxiety/depression, hyperlipidemia, acid reflux, peripheral neuropathy and hyperparathyroidism s/p partial parathyroidectomy 07/2017 who presents from urology clinic with report of fever and chills. Patient reports she was diagnosed witha UTI and, "two kidney stones," on the left 10/14/17 at [facility]. Patient reports that she was discharged on keflex and told to follow up with Dr. Li. This AM patient reports she was feeling generally well although she did have a temperature of 99.5 pre-procedure. Patient reportedly had lithotripsy and had a stent placed in her left kidney. When patient was waking from anesthesia she was noted to have chills and a temperature of 102.1. EMS was called and when paramedics arrived, they found her temperature 102.8. The patient reports associated nausea and diaphoresis. Patient reports chills have stopped and nausea is mild at this time. Patient feels as though, "a truck ran over her." Patient denies SOB or chest pain. CBC/BMP: 11/17/17 0745 11/17/17 0745 Significant Findings Laboratory Tests Test 11/15/17 13:10 11/15/17 13:20 11/16/17 05:40 11/17/17 07:45 Urine Color LIGHT-RED (YELLW/STRAW) Urine Turbidity HAZY (CLEAR) Urine Protein 30 mg/dL (NEG-TRACE) Urine Occult Blood LARGE (NEG) Urine Leukocyte Esterase LARGE (NEG) Urine WBC Clumps MANY (NONE) Urine Mucus FEW /lpf (OCC) Hemoglobin 11.5 GM/DL (11.6-15.3) 11.0 GM/DL (11.6-15.3) 10.4 GM/DL (11.6-15.3) Hematocrit 34.3 % (35.0-46.0) 33.4 % (35.0-46.0) 31.9 % (35.0-46.0) Neutrophils (%) (Auto) 97.1 % (16.0-70.0) 96.0 % (16.0-70.0) 80.0 % (16.0-70.0) Lymphocytes (%) (Auto) 2.3 % (9.0-44.0) 1.7 % (9.0-44.0) Lymphocytes # (Auto) 0.2 TH/MM3 (1.0-4.8) 0.2 TH/MM3 (1.0-4.8) 0.5 TH/MM3 (1.0-4.8) Activated Partial Thromboplast Time 21.7 SEC (24.3-30.1) Albumin 3.0 GM/DL (3.4-5.0) Alkaline Phosphatase 118 U/L (45-117) Estimat Glomerular Filtration Rate 71 ML/MIN (>89) 79 ML/MIN (>89) Red Blood Count 3.85 MIL/MM3 (4.00-5.30) 3.68 MIL/MM3 (4.00-5.30) Neutrophils # (Auto) 9.7 TH/MM3 (1.8-7.7) Random Glucose 115 MG/DL (74-106) Calcium Level 8.1 MG/DL (8.5-10.1) 8.0 MG/DL (8.5-10.1) Imaging Last Impressions Chest X-Ray 11/15/17 1458 Signed Impressions: CONCLUSION: No acute cardiopulmonary abnormality is identified. Linear opacities bilaterall y represent either subsegmental atelectasis or scar. PE at Discharge GENERAL: This is a morbidly obese 52 year old female, well-developed patient, in no apparent distress. CARDIOVASCULAR: Regular rate and rhythm RESPIRATORY: Clear to auscultation. Breath sounds equal bilaterally. GASTROINTESTINAL: Abdomen soft, non-tender, nondistended. Normal active bowel sounds MUSCULOSKELETAL: Extremities without clubbing, cyanosis, or edema. NEURO: Alert & Oriented x4 to person, place, time, situation. Moves all ext x4 Hospital Course Urinary tract infection This a 52-year-old female patient with past medical history which includes anxiety/depression, hyperlipidemia, acid reflux, peripheral neuropathy and hyperparathyroidism s/p partial parathyroidectomy 07/2017 who presents from urology clinic with report of fever and chills. Patient reports she was diagnosed witha UTI and, "two kidney stones," on the left 10/14/17 at [facility]. Patient reports that she was discharged on keflex and told to follow up with Dr. Li. This AM patient reports she was feeling generally well although she did have a temperature of 99.5 pre-procedure. Patient reportedly had lithotripsy and had a stent placed in her left kidney. When patient was waking from anesthesia she was noted to have chills and a temperature of 102.1. EMS was called and when paramedics arrived, they found her temperature 102.8. The patient reports associated nausea and diaphoresis. Patient reports chills have stopped and nausea is mild at this time. Patient feels as though, "a truck ran over her." Patient denies SOB or chest pain. Records from outpatient neurology requested Urinalysis reviewed and reveals large amount of occult blood negative nitrates large amount of leukocyte esterase and white blood cells with clumps Urine culture shows no growth for 48 hours Ceftriaxone started in emergency department, will continue WBC on admission 7.4 -> 10.1 (11/16) A febrile since (11/16/17) 0400 Anxiety disorder Continue patient's home Bupropion 150 mg daily and Duloxetine 60 mg daily Hyperlipidemia Continue home Atorvastatin Migraine - resolved Patient with migraines consistent with her prior migraines. Slightly better after Fioricet. [place] BLE edema 2 D echocardiogram ordered and still pending- patient can follow up with cardiology outpatient for echocardiogram Pt Condition on Discharge: Stable Discharge Disposition: Discharge Home Discharge Instructions DIET: Follow Instructions for: Weight Management Activities you can perform: Regular-No Restrictions Follow up Referrals: Cardiology - [address] Joya PCP Follow-up - [address] Liu Urology - [address] Potter New Medications: Levofloxacin (Levofloxacin) 500 Mg Tablet 500 MG PO DAILY for Infection, #8 TAB 0 Refills Continued Medications: Atorvastatin (Atorvastatin) 20 Mg Tab 20 MG PO HS for Cholesterol Management, #30 TAB 0 Refills Biotin (Biotin) 5 Mg Cap 5 MG PO for Nutritional Supplement, #1 BOTTLE 0 Refills Bupropion HCl ER 24 HR (Wellbutrin Xl 24 HR) 150 Mg Tab 150 MG PO DAILY for Control Depression, TAB [address] (Duloxetine DR) 60 Mg Capdr 60 MG PO DAILY, #30 CAP 0 Refills Gabapentin (Gabapentin) 600 Mg Tab 600 MG PO HS, #30 TAB 0 Refills Nabumetone (Nabumetone) 750 Mg Tab 750 MG PO BID for Pain-Inflammation, #60 TAB 0 Refills Omeprazole (Omeprazole) 40 Mg Cap 40 MG DAILY, #30 CAP 0 Refills Tamsulosin (Flomax) 0.4 Mg Cap 0.4 MG PO HS for Manage Prostate Problems, #30 CAP 0 Refills Additional Information Patient examined. Assessment and plan formulated with Milla Maloney PA-C. I agree with the above. Milla Maloney Nov 17, 2017 15:05 Rishi Echeverria DO Nov 18, 2017 23:01
[2017-11-17] MEDS: cefTRIAXone INJ 1,000 MG in SODIUM CHLORIDE 0.9% INJ 100 ML IV SCH (15:09)
--- NOTE | 2017-11-17 16:45 | HHI.PR ---
Subjective Patient symptoms today Doing well, no fevers. Cultures have been negative Objective Vital Signs Vital Signs Date Time Temp Pulse Resp B/P (MAP) Pulse Ox O2 Delivery O2 Flow Rate FiO2 11/17/17 12:08 98.3 90 18 120/59 (79) 93 11/17/17 08:08 98.1 87 18 119/58 (78) 92 11/17/17 08:00 95 11/17/17 08:00 96 Nasal Cannula 2.00 11/17/17 04:00 82 11/17/17 04:00 98.1 85 16 107/68 (81) 95 11/17/17 04:00 Nasal Cannula 2.00 11/17/17 00:00 78 11/17/17 00:00 98.0 81 18 112/71 (85) 94 11/17/17 00:00 Nasal Cannula 2.00 11/16/17 20:00 98.3 90 21 104/55 (71) 94 11/16/17 20:00 89 11/16/17 20:00 Nasal Cannula 2.00 Intake & Output 11/17/17 11/17/17 06:59 18:59 Intake Total 480 ml Output Total 1200 ml Balance -720 ml Intake Oral 480 ml Output Urine Total 1200 ml Result Diagram: 11/17/17 0745 11/17/17 0745 Objective Remarks NAD, AAOx3 Resp NL Medications and IVs Current Medications Medications (Trade) Dose Ordered Sig/Ioana Route Start Time Stop Time Status Last Admin (NS Flush) 2 ml UNSCH PRN IV FLUSH 11/15/17 15:00 (NS Flush) 2 ml BID IV FLUSH 11/15/17 21:00 11/17/17 08:21 (Tylenol) 650 mg Q4H PRN PO 11/15/17 15:00 11/17/17 11:24 (Zofran Odt) 4 mg Q6H PRN PO 11/15/17 15:15 11/15/17 21:51 (Narcan Inj) 0.4 mg UNSCH PRN IV PUSH 11/15/17 15:00 (Milk Of Magnesia Liq) 30 ml Q12H PRN PO 11/15/17 15:00 Ceftriaxone Sodium 1000 mg/ Sodium Chloride 100 ml @ 200 mls/hr Q24H IV 11/16/17 15:00 11/17/17 15:09 (Lipitor) 20 mg HS PO 11/15/17 21:00 11/16/17 20:47 (Cymbalta Dr) 60 mg DAILY PO 11/16/17 09:00 11/17/17 08:17 (Neurontin) 600 mg HS PO 11/15/17 21:00 11/16/17 20:47 (Flomax) 0.4 mg HS PO 11/15/17 21:00 11/16/17 20:47 (Wellbutrin Sr) 150 mg DAILY PO 11/16/17 09:00 11/17/17 08:17 (Protonix) 40 mg DAILY PO 11/16/17 09:00 11/17/17 08:17 (Relafen) 750 mg BID PO 11/15/17 21:00 11/17/17 08:16 (Pill Splitter) 1 ea UNSCH PRN OTHER 11/15/17 17:00 (Fioricet 325-50-40) 1 tab Q8H PRN PO 11/16/17 10:45 11/17/17 14:29 ([place] 5-325 Mg) 1 tab Q4H PRN PO 11/16/17 13:45 11/17/17 12:58 Assessment and Plan Problem List: (1) Urinary tract infection ICD Code: N39.0 - Urinary tract infection, site not specified Status: Acute (2) Sepsis ICD Code: A41.9 - Sepsis, unspecified organism Status: Acute Assessment and Plan -Followup with Dr. Alvarado in clinic in 1-2 weeks Golden Mazariegos MD Nov 17, 2017 16:45
== END 2017-11-17 16:52 | disposition home or self-care (01) | DRG 872 ==
LOC: NEPE 12:43 → NEDA 15:22 → N04A 21:17
PROVIDERS: ADMIT Hospitalist; ATTEND Hospitalist
DX: A41.9 Sepsis, unspecified organism (principal); I95.9 Hypotension, unspecified; N39.0 Urinary tract infection, site not specified; R60.0 Localized edema; E78.5 Hyperlipidemia, unspecified; F41.9 Anxiety disorder, unspecified; G43.909 Migraine, unspecified, not intractable, without status migrainosus; K21.9 Gastro-esophageal reflux disease without esophagitis; Z87.891 Personal history of nicotine dependence; Z98.890 Other specified postprocedural states; Z79.899 Other long term (current) drug therapy
CPT/HCPCS: 71045; 80048; 80053; 81001; 83605; 85025; 85379; 85610; 85730; 87040; 87086; 93005; 94618; 96361; 96374; J0696; J7030; J7040